=== PATIENT | female | born 1960 | race Two or more races ===

== ENCOUNTER 2020-09-02 08:32 | Emergency (ER) | payer BC ==
[~2020-09-02] VITALS: Ht 157.5 cm; Wt 88.0 kg
[~2020-09-02 08:32] MED LIST: ATOR20TA; FOLI1TAB6; HYDR200T36; HYDR25TA4; LEVOPOW43; LISI-646; METF-370; METH2.5T; METO10TA3; NOR10T
[2020-09-02 08:44] VITALS: BP 149/92
[2020-09-02 09:44] LABS: Basophils # (auto) 0 10 ^3/uL (0-0.2); Basophils % (auto) 0.7 % (0.0-2.0); Eosinophils # (auto) 0.1 10 ^3/uL (0-0.8); Eosinophils % (auto) 1.5 % (0.0-7.0); Hematocrit 40.3 % (36.0-46.0); Hemoglobin 13.9 g/dL (12.2-16.2); Lymphocytes # (auto) 1.4 10 ^3/uL (0.4-5.4); Lymphocytes % (auto) 23.7 % (10.0-50.0); Mean Corpuscular Hemoglobin 32.7 pg (28.0-32.0); Mean Corpuscular Hgb Conc. 34.6 g/dL (32.0-36.0); Mean Corpuscular Volume 94.5 fL (80.0-100.0); Monocytes # (auto) 0.8 10 ^3/uL (0-1.3); Monocytes % (auto) 13.7 % (0.0-12.0); Neutrophils # (auto) 3.5 10 ^3/uL (1.6-8.6); Neutrophils % (auto) 60.4 % (37.0-80.0); Nucleated Red Blood Cells % 0.2 %; Platelet Count (auto) 201 10^3/uL (140-450); Red Blood Cells 4.26 10^6/uL (4.0-5.20); Red Cell Distribution Width 13.5 % (11.8-14.3); White Blood Cell 5.8 10^3/uL (4.4-10.8)
[2020-09-02 10:06] LABS: Albumin 4.2 g/dL (3.4-5.0); Anion Gap 7 (5-15); Blood Urea Nitrogen 13 mg/dL (7-18); Calcium 9.1 mg/dL (8.5-10.1); Carbon Dioxide 25 mmol/L (21-32); Chloride 102 mmol/L (98-107); Glucose 131 mg/dL (74-106); Potassium 3.9 mmol/L (3.5-5.1); Sodium 134 mmol/L (136-145)
[2020-09-02 10:33] LABS: Alanine Aminotransferase 114 U/L (13-56); Alkaline Phosphatase 143 U/L (45-117); Aspartate Aminotransferase 71 U/L (15-37); BUN/Creatinine Ratio 14.6; Bilirubin, Total 0.3 mg/dL (0.2-1.0); GFR African American 84 mL/min; GFR Non-African American 69 mL/min; Total Protein 7.9 g/dL (6.4-8.2)
== END 2020-09-02 10:24 | disposition home or self-care (01) ==
LOC: ER 08:32
DX: U07.1 COVID-19 (principal)
CPT/HCPCS: 36415; 71045; 80053; 84484; 85025; 85379

== ENCOUNTER 2020-09-11 22:13 | Emergency (ER) | payer BC ==
[~2020-09-11] VITALS: Ht 157.5 cm; Wt 88.0 kg
[2020-09-12 03:00] VITALS: BP 123/79
== END 2020-09-12 03:19 | disposition home or self-care (01) ==
LOC: ER 22:13
DX: U07.1 COVID-19 (principal); R51.9 Headache, unspecified; J98.11 Atelectasis; E66.9 Obesity, unspecified; R07.9 Chest pain, unspecified; E11.9 Type 2 diabetes mellitus without complications; E78.5 Hyperlipidemia, unspecified; I10 Essential (primary) hypertension; Z68.35 Body mass index [BMI] 35.0-35.9, adult
CPT/HCPCS: 71045

== ENCOUNTER 2020-09-16 16:18 | Inpatient (IN) | payer BC ==
[~2020-09-16] VITALS: Ht 157.5 cm; Wt 81.2 kg
[~2020-09-16 16:18] MED LIST changes: -ATOR20TA; +ATOR20TA PO; -FOLI1TAB6; +FOLI1TAB6 PO; -HYDR200T36; +HYDR200T36 PO; -HYDR25TA4; +HYDR25TA4 PO; -LISI-646; +LISI-646 PO; -NOR10T; +NOR10T PO
[2020-09-16] MEDS ORDERED: ACETAMINOPHEN 500 MG TAB PO ONE (16:45)
[2020-09-16 17:30] LABS: Basophils # (auto) 0 10 ^3/uL (0-0.2); Basophils % (auto) 0.2 % (0.0-2.0); Eosinophils # (auto) 0 10 ^3/uL (0-0.8); Hematocrit 34.9 % (36.0-46.0); Hemoglobin 12.3 g/dL (12.2-16.2); Lymphocytes # (auto) 0.4 10 ^3/uL (0.4-5.4); Lymphocytes % (auto) 5.8 % (10.0-50.0); Mean Corpuscular Hemoglobin 31.9 pg (28.0-32.0); Mean Corpuscular Hgb Conc. 35.3 g/dL (32.0-36.0); Mean Corpuscular Volume 90.4 fL (80.0-100.0); Monocytes # (auto) 0.7 10 ^3/uL (0-1.3); Monocytes % (auto) 10.4 % (0.0-12.0); Neutrophils # (auto) 5.7 10 ^3/uL (1.6-8.6); Neutrophils % (auto) 83.6 % (37.0-80.0); Nucleated Red Blood Cells % 0.1 %; Platelet Count (auto) 370 10^3/uL (140-450); Red Blood Cells 3.86 10^6/uL (4.0-5.20); Red Cell Distribution Width 13.3 % (11.8-14.3); White Blood Cell 6.8 10^3/uL (4.4-10.8)
[2020-09-16 17:54] LABS: Albumin 3.1 g/dL (3.4-5.0); Anion Gap 8 (5-15); Calcium 8.6 mg/dL (8.5-10.1); Carbon Dioxide 21 mmol/L (21-32); Chloride 100 mmol/L (98-107); Potassium 4.3 mmol/L (3.5-5.1); Sodium 129 mmol/L (136-145)
[2020-09-16 18:02] LABS: Alanine Aminotransferase 81 U/L (13-56); Alkaline Phosphatase 108 U/L (45-117); Aspartate Aminotransferase 64 U/L (15-37); BUN/Creatinine Ratio 36.4; Bilirubin, Total 0.5 mg/dL (0.2-1.0); Blood Urea Nitrogen 24 mg/dL (7-18); GFR African American 118 mL/min; GFR Non-African American 98 mL/min; Glucose 121 mg/dL (74-106); Total Protein 6.9 g/dL (6.4-8.2)
[2020-09-16] MEDS ORDERED: FUROSEMIDE 20 MG/2 ML VIAL IV ONE (19:30)
[2020-09-16] MEDS ORDERED: ACETAMINOPHEN 500 MG TAB PO PRN (19:30)
[2020-09-16] MEDS ORDERED: MORPHINE SULF INJ 2 MG/ML SYRINGE 1ML IV PRN ×2 (19:30)
[2020-09-16] MEDS ORDERED: ALBUTEROL SULF HFA 90MCG INH 200DOSE IN PRN (19:30)
[2020-09-16] MEDS ORDERED: DEXTROSE (50%) 50ML SYRG IV PRN (19:30)
[2020-09-16] MEDS ORDERED: NITROGLYCERIN 0.4 MG SL TAB SL PRN (19:30)
[2020-09-16] MEDS: ZINC SULFATE 220mg CAP or TAB PO SCH (20:11)
[2020-09-16] MEDS: CHOLECALCIFEROL (VITD3) 2,000 UNIT CAP PO SCH (20:11)
[2020-09-16] MEDS: DexAMETHasone SOD PHOS 10MG/1ML VIAL INJ IV SCH (20:11)
[2020-09-16] MEDS: ASCORBIC ACID 1,000 MG TAB PO SCH (20:11)
[2020-09-16] MEDS: AZITHROMYCIN 500MG/ 250ML 250 ML IV SCH (20:12)
[2020-09-16] MEDS: ONDANSETRON HCL 4 MG/2 ML VIAL IV PRN (20:43)
[2020-09-16] MEDS: cefTRIAXone 1GM/50ML D5W 50 ML IV SCH (20:56)
[2020-09-16] MEDS: ACCU-CHEK COMFORT CURVE STRIP VI SCH (21:46)
[2020-09-16] MEDS: InsuLIN REG 1unit/0.01ml Soln (100units/ml) SC SCH (21:48)
[2020-09-16] MEDS ORDERED: BUDESONIDE (INHALATION) 0.5 MG/2 ML NEB NEB SCH (22:00)
[2020-09-16] MEDS: BUDESONIDE (INHALATION) 180 MCG IH IN SCH (22:00)
[2020-09-16] MEDS: hydrOXYchloroQUINE SULFATE 200 MG TAB PO SCH (22:09)
[2020-09-16] MEDS: ENOXAPARIN SOD 40 MG/0.4 ML SYRINGE SC SCH (22:10)
[2020-09-16 22:22] LABS: Magnesium 1.6 mg/dL (1.6-2.6)
[2020-09-16 22:37] LABS: CRP High Sensitivity 5.76 mg/dL (< 0.3)
[2020-09-17 01:39] LABS: Urine Bacteria FEW /hpf (None Seen); Urine Blood Negative /uL (Negative); Urine Specific Gravity 1.021 (1.001-1.035); Urine WBC 1 /hpf (0 - 5)
[2020-09-17] MEDS: HYDROcodone-ACET 5/325MG TAB PO PRN ×3 (04:36→17:34)
[2020-09-17 06:09] LABS: Basophils # (auto) 0 10 ^3/uL (0-0.2); Basophils % (auto) 0.1 % (0.0-2.0); Eosinophils # (auto) 0 10 ^3/uL (0-0.8); Hematocrit 31.7 % (36.0-46.0); Hemoglobin 11.5 g/dL (12.2-16.2); Lymphocytes # (auto) 0.5 10 ^3/uL (0.4-5.4); Lymphocytes % (auto) 11.3 % (10.0-50.0); Mean Corpuscular Hemoglobin 32.5 pg (28.0-32.0); Mean Corpuscular Hgb Conc. 36.4 g/dL (32.0-36.0); Mean Corpuscular Volume 89.5 fL (80.0-100.0); Monocytes # (auto) 0.5 10 ^3/uL (0-1.3); Neutrophils # (auto) 3.1 10 ^3/uL (1.6-8.6); Neutrophils % (auto) 76.6 % (37.0-80.0); Platelet Count (auto) 332 10^3/uL (140-450); Red Blood Cells 3.55 10^6/uL (4.0-5.20); Red Cell Distribution Width 13.2 % (11.8-14.3)
[2020-09-17] MEDS: ACCU-CHEK COMFORT CURVE STRIP VI SCH ×4 (06:22→21:58)
[2020-09-17] MEDS: InsuLIN REG 1unit/0.01ml Soln (100units/ml) SC SCH ×4 (06:22→22:00)
[2020-09-17 06:30] LABS: Potassium 4.3 mmol/L (3.5-5.1)
[2020-09-17 06:37] LABS: Albumin 2.8 g/dL (3.4-5.0); BUN/Creatinine Ratio 42.9; Bilirubin, Total 0.4 mg/dL (0.2-1.0); Calcium 8.3 mg/dL (8.5-10.1); Total Protein 6.4 g/dL (6.4-8.2)
[2020-09-17] MEDS: BUDESONIDE (INHALATION) 180 MCG IH IN SCH ×2 (10:00→22:00)
[2020-09-17] MEDS: ONDANSETRON HCL 4 MG/2 ML VIAL IV PRN ×2 (10:24→17:34)
[2020-09-17] MEDS: ASCORBIC ACID 1,000 MG TAB PO SCH (10:27)
[2020-09-17] MEDS: AZITHROMYCIN 500MG/ 250ML 250 ML IV SCH (10:27)
[2020-09-17] MEDS: DexAMETHasone SOD PHOS 10MG/1ML VIAL INJ IV SCH (10:27)
[2020-09-17] MEDS: cefTRIAXone 1GM/50ML D5W 50 ML IV SCH (10:27)
[2020-09-17] MEDS: hydrOXYchloroQUINE SULFATE 200 MG TAB PO SCH ×2 (10:27→21:57)
[2020-09-17] MEDS: ZINC SULFATE 220mg CAP or TAB PO SCH (10:27)
[2020-09-17] MEDS: CHOLECALCIFEROL (VITD3) 2,000 UNIT CAP PO SCH (10:27)
[2020-09-17] MEDS: FAMOTIDINE 20 MG TAB PO SCH (10:27)
[2020-09-17] MEDS: ENOXAPARIN SOD 40 MG/0.4 ML SYRINGE SC SCH ×2 (10:28→21:58)
[2020-09-17] MEDS: COLCHICINE 0.6 MG CAP PO SCH (10:49)
[2020-09-17] MEDS ORDERED: METF-879 PO (19:08)
[2020-09-17] MEDS ORDERED: LEVO150T10 PO (19:08)
[2020-09-17] MEDS ORDERED: SERT-160 PO (19:12)
[2020-09-17] MEDS ORDERED: TURM500C3 OR (19:12)
[2020-09-17] MEDS ORDERED: TEMA30CA PO (19:12)
[2020-09-17] MEDS ORDERED: [UNRECOGNIZED DRUG - CODE] IV (19:12)
[2020-09-17] MEDS ORDERED: GABA100C9 PO (19:12)
[2020-09-17] MEDS ORDERED: DOCU-80 PO (19:12)
[2020-09-17] MEDS ORDERED: OXYB5TAB61 PO (19:12)
[2020-09-17] MEDS ORDERED: ALEN35TA18 PO (19:12)
[2020-09-17] MEDS ORDERED: ASPI-498 PO (19:12)
[2020-09-17] MEDS ORDERED: METH500T22 PO (19:12)
[2020-09-17] MEDS ORDERED: ERGO1CAP12 PO (19:13)
[2020-09-17] MEDS ORDERED: BENZ200C64 PO (19:14)
[2020-09-17] MEDS ORDERED: ZINC220C8 PO (19:14)
[2020-09-17] MEDS ORDERED: ALBUAER3 IN (19:14)
[2020-09-17] MEDS ORDERED: ACET-1304 PO (19:15)
[2020-09-17] MEDS ORDERED: DOXY100C2 PO (19:15)
[2020-09-17] MEDS ORDERED: LEVO500T21 PO (19:26)
[2020-09-17] MEDS ORDERED: IPR002IS NEB (19:26)
[2020-09-17] MEDS ORDERED: ALBU0.5N2 NEB (19:26)
[2020-09-17] MEDS ORDERED: METH4PAK PO (19:26)
[2020-09-18] VITALS (8 sets, daily range): BP systolic 103–127; BP diastolic 65–80
[2020-09-18] MEDS: guaiFENesin-CODEINE Liq 5 ML UD PO PRN ×2 (00:35→11:44)
[2020-09-18] MEDS: HYDROcodone-ACET 5/325MG TAB PO PRN ×2 (01:05→11:44)
[2020-09-18] MEDS: ACCU-CHEK COMFORT CURVE STRIP VI SCH ×3 (06:23→17:16)
[2020-09-18] MEDS: InsuLIN REG 1unit/0.01ml Soln (100units/ml) SC SCH ×3 (06:23→17:18)
[2020-09-18] MEDS: BUDESONIDE (INHALATION) 180 MCG IH IN SCH (07:11)
[2020-09-18] MEDS: cefTRIAXone 1GM/50ML D5W 50 ML IV SCH (09:14)
[2020-09-18] MEDS: AZITHROMYCIN 500MG/ 250ML 250 ML IV SCH (09:15)
[2020-09-18] MEDS: ENOXAPARIN SOD 40 MG/0.4 ML SYRINGE SC SCH (09:15)
[2020-09-18] MEDS: DexAMETHasone SOD PHOS 10MG/1ML VIAL INJ IV SCH (09:15)
[2020-09-18] MEDS: ASCORBIC ACID 1,000 MG TAB PO SCH (09:16)
[2020-09-18] MEDS: ZINC SULFATE 220mg CAP or TAB PO SCH (09:16)
[2020-09-18] MEDS: COLCHICINE 0.6 MG CAP PO SCH (09:16)
[2020-09-18] MEDS: CHOLECALCIFEROL (VITD3) 2,000 UNIT CAP PO SCH (09:16)
[2020-09-18] MEDS: FAMOTIDINE 20 MG TAB PO SCH (10:00)
[2020-09-18] MEDS: ONDANSETRON HCL 4 MG/2 ML VIAL IV PRN ×2 (11:44)
[2020-09-18] MEDS: hydrOXYchloroQUINE SULFATE 200 MG TAB PO SCH (14:18)
== END 2020-09-18 19:00 | disposition home health service (06) | DRG 177 ==
LOC: ER 16:18 → TELE 16:19 → TELE-EAST 09-17 23:34
PROVIDERS: ADMIT Nurse Practitioner Acute Care; ATTEND Internal Medicine
PROC: XW13325 Transfusion of Convalescent Plasma (Nonautologous) into Peripheral Vein, Percutaneous Approach, New Technology Group 5 (ICD-10-PCS; principal; 2020-09-18)
DX: U07.1 COVID-19 (principal); J12.82 Pneumonia due to coronavirus disease 2019; J96.01 Acute respiratory failure with hypoxia; E87.1 Hypo-osmolality and hyponatremia; D68.59 Other primary thrombophilia; D89.839 Cytokine release syndrome, grade unspecified; E11.9 Type 2 diabetes mellitus without complications; E78.5 Hyperlipidemia, unspecified; I10 Essential (primary) hypertension; E03.9 Hypothyroidism, unspecified; F32.9 Major depressive disorder, single episode, unspecified; M06.9 Rheumatoid arthritis, unspecified; E66.01 Morbid (severe) obesity due to excess calories; Z79.899 Other long term (current) drug therapy; Z88.8 Allergy status to other drugs, medicaments and biological substances; Z79.84 Long term (current) use of oral hypoglycemic drugs; Z68.32 Body mass index [BMI] 32.0-32.9, adult
CPT/HCPCS: 36415; 71045; 80053; 81001; 82728; 82962; 83036; 83605; 83615; 83735; 83880; 84443; 84484; 85025; 85379; 86141; 86850; 86900; 86901; 87040; 87081; 87426; 87804; 93970; 96374; G0378; J0696; J1100; J1815; J2405

== ENCOUNTER 2020-09-21 10:06 | Inpatient (IN) | payer BC ==
[~2020-09-21] VITALS: Ht 157.5 cm; Wt 81.2 kg
[~2020-09-21 10:06] MED LIST changes: +ACET-1304 PO; +ALBU0.5N2 NEB; +ALBUAER3 IN; +ALEN35TA18 PO; +ASPI-498 PO; +BENZ200C64 PO; +DOCU-80 PO; +DOXY100C2 PO; +ERGO1CAP12 PO; +GABA100C9 PO; -HYDR25TA4 PO; +IPR002IS NEB; +LEVO150T10 PO; +LEVO500T31 PO; -LEVOPOW43; -METF-370; +METF-879 PO; -METH2.5T; +METH4PAK PO; +METH500T22 PO; -METO10TA3; +OXYB5TAB61 PO; +SERT-160 PO; +TEMA30CA PO; +[UNRECOGNIZED DRUG - CODE] IV
[2020-09-21] MEDS ORDERED: IOHEXOL 350 MG/ML 100ML IJ ONE (10:34)
[2020-09-21] MEDS ORDERED: LORazepam 2MG/ML-1ML VIAL IV ONE (10:45)
[2020-09-21 11:17] LABS: Basophils # (auto) 0 10 ^3/uL (0-0.2); Basophils % (auto) 0.1 % (0.0-2.0); Eosinophils # (auto) 0 10 ^3/uL (0-0.8); Hematocrit 35.1 % (36.0-46.0); Lymphocytes # (auto) 0.5 10 ^3/uL (0.4-5.4); Lymphocytes % (auto) 4.5 % (10.0-50.0); Mean Corpuscular Hemoglobin 31.3 pg (28.0-32.0); Mean Corpuscular Hgb Conc. 34.1 g/dL (32.0-36.0); Mean Corpuscular Volume 91.6 fL (80.0-100.0); Monocytes # (auto) 0.9 10 ^3/uL (0-1.3); Monocytes % (auto) 7.6 % (0.0-12.0); Neutrophils # (auto) 10.2 10 ^3/uL (1.6-8.6); Neutrophils % (auto) 87.8 % (37.0-80.0); Platelet Count (auto) 417 10^3/uL (140-450); Red Blood Cells 3.83 10^6/uL (4.0-5.20); Red Cell Distribution Width 13.2 % (11.8-14.3); White Blood Cell 11.6 10^3/uL (4.4-10.8)
[2020-09-21 11:27] LABS: Albumin 2.7 g/dL (3.4-5.0); Anion Gap 6 (5-15); Blood Urea Nitrogen 20 mg/dL (7-18); Calcium 9.2 mg/dL (8.5-10.1); Carbon Dioxide 27 mmol/L (21-32); Chloride 94 mmol/L (98-107); Glucose 109 mg/dL (74-106); Magnesium 1.8 mg/dL (1.6-2.6); Potassium 4.7 mmol/L (3.5-5.1); Sodium 127 mmol/L (136-145)
[2020-09-21] MEDS ORDERED: NITROGLYCERIN 0.4 MG SL TAB SL PRN (11:30)
[2020-09-21] MEDS ORDERED: MORPHINE SULF INJ 2 MG/ML SYRINGE 1ML IV PRN ×2 (11:30→12:30)
[2020-09-21 11:33] LABS: Alanine Aminotransferase 153 U/L (13-56); Alkaline Phosphatase 140 U/L (45-117); Aspartate Aminotransferase 92 U/L (15-37); BUN/Creatinine Ratio 29.4; Bilirubin, Total 0.6 mg/dL (0.2-1.0); GFR African American 114 mL/min; GFR Non-African American 94 mL/min; Total Protein 7.3 g/dL (6.4-8.2)
[2020-09-21] MEDS ORDERED: VANCOMYCIN PER PHARMACY 0 MG IV SCH (12:30)
[2020-09-21] MEDS ORDERED: REMDESIVIR PER PHARMACY 0 ML IV SCH (12:30)
[2020-09-21] MEDS ORDERED: ACETAMINOPHEN 500 MG TAB PO PRN (12:30)
[2020-09-21] MEDS ORDERED: VANCOMYCIN 1GM/250ML 250 ML IV ONE (12:30)
[2020-09-21] MEDS ORDERED: levoFLOXacin 500MG 100 ML IV ONE (12:30)
[2020-09-21] MEDS ORDERED: LACTULOSE 20Gm/30ML SOLN PO PRN (12:30)
[2020-09-21] MEDS ORDERED: DEXTROSE (50%) 50ML SYRG IV PRN (12:30)
[2020-09-21] MEDS ORDERED: traMADol HCL 50 MG TAB PO PRN (12:30)
[2020-09-21] MEDS ORDERED: ASCORBIC ACID 1,000 MG TAB PO ONE (12:45)
[2020-09-21] MEDS ORDERED: CHOLECALCIFEROL (VITD3) 2,000 UNIT CAP PO ONE (12:45)
[2020-09-21] MEDS ORDERED: DexAMETHasone SOD PHOS 10MG/1ML VIAL INJ IV ONE (12:45)
[2020-09-21] MEDS ORDERED: ENOXAPARIN SOD 40 MG/0.4 ML SYRINGE SC ONE (12:45)
[2020-09-21] MEDS ORDERED: FAMOTIDINE 20 MG TAB PO ONE (12:45)
[2020-09-21] MEDS ORDERED: ZINC SULFATE 220mg CAP or TAB PO ONE (12:45)
[2020-09-21] MEDS: PROMETHAZINE HCL 25 MG/ML 1ML IV PRN (14:15)
[2020-09-21] MEDS: HYDROcodone-ACET 5/325MG TAB PO PRN (14:35)
[2020-09-21] MEDS ORDERED: REMDESIVIR 200 MG in NS 210ml LOADING DOSE ADULT IV ONE (15:00)
[2020-09-21] MEDS: ACCU-CHEK COMFORT CURVE STRIP VI SCH ×2 (18:13→22:30)
[2020-09-21] MEDS: InsuLIN REG 1unit/0.01ml Soln (100units/ml) SC SCH ×2 (18:15→23:00)
[2020-09-21] MEDS: BUDESONIDE (INHALATION) 180 MCG IH IN SCH (18:55)
[2020-09-21] MEDS: ALBUTEROL SULF HFA 90MCG INH 200DOSE IN PRN (19:01)
[2020-09-21] MEDS: FAMOTIDINE 20 MG TAB PO SCH (23:00)
[2020-09-21] MEDS: ENOXAPARIN SOD 40 MG/0.4 ML SYRINGE SC SCH (23:00)
[2020-09-22] MEDS: ACCU-CHEK COMFORT CURVE STRIP VI SCH ×4 (07:00→22:18)
[2020-09-22 07:50] LABS: Basophils # (auto) 0 10 ^3/uL (0-0.2); Basophils % (auto) 0.4 % (0.0-2.0); Eosinophils # (auto) 0 10 ^3/uL (0-0.8); Hematocrit 35.5 % (36.0-46.0); Hemoglobin 12.1 g/dL (12.2-16.2); Lymphocytes % (auto) 10.5 % (10.0-50.0); Mean Corpuscular Hemoglobin 31.4 pg (28.0-32.0); Mean Corpuscular Volume 92.1 fL (80.0-100.0); Monocytes # (auto) 0.9 10 ^3/uL (0-1.3); Monocytes % (auto) 9.2 % (0.0-12.0); Neutrophils # (auto) 7.9 10 ^3/uL (1.6-8.6); Neutrophils % (auto) 79.9 % (37.0-80.0); Platelet Count (auto) 389 10^3/uL (140-450); Red Blood Cells 3.86 10^6/uL (4.0-5.20); Red Cell Distribution Width 13.5 % (11.8-14.3); White Blood Cell 9.8 10^3/uL (4.4-10.8)
[2020-09-22 08:10] LABS: Potassium 4.2 mmol/L (3.5-5.1)
[2020-09-22] MEDS: ALBUTEROL SULF HFA 90MCG INH 200DOSE IN PRN (08:13)
[2020-09-22] MEDS: BUDESONIDE (INHALATION) 180 MCG IH IN SCH ×2 (08:13→22:00)
[2020-09-22 08:17] LABS: Albumin 2.5 g/dL (3.4-5.0); BUN/Creatinine Ratio 32.3; Bilirubin, Total 0.5 mg/dL (0.2-1.0); Calcium 8.8 mg/dL (8.5-10.1); Total Protein 6.9 g/dL (6.4-8.2)
[2020-09-22] MEDS ORDERED: IVERMECTIN 3 MG TAB PO ONE (10:00)
[2020-09-22] MEDS: DexAMETHasone SOD PHOS 10MG/1ML VIAL INJ IV SCH (10:07)
[2020-09-22] MEDS: CHOLECALCIFEROL (VITD3) 2,000 UNIT CAP PO SCH (10:07)
[2020-09-22] MEDS: ZINC SULFATE 220mg CAP or TAB PO SCH (10:07)
[2020-09-22] MEDS: ENOXAPARIN SOD 40 MG/0.4 ML SYRINGE SC SCH ×2 (10:07→21:53)
[2020-09-22] MEDS: ASCORBIC ACID 1,000 MG TAB PO SCH (10:07)
[2020-09-22] MEDS: FAMOTIDINE 20 MG TAB PO SCH ×2 (10:07→21:53)
[2020-09-22] MEDS: InsuLIN REG 1unit/0.01ml Soln (100units/ml) SC SCH ×4 (10:26→21:56)
[2020-09-22] MEDS: levoFLOXacin 500MG 100 ML IV SCH (10:31)
[2020-09-22 10:51] LABS: Albumin 2.6 g/dL (3.4-5.0); Bilirubin, Direct 0.2 mg/dL (0-0.2)
[2020-09-22 10:53] LABS: Bilirubin, Total 0.5 mg/dL (0.2-1.0)
[2020-09-22] MEDS ORDERED: REMDESIVIR 100mg 100 MG in SODIUM CHL 0.9% 230 ML IV SCH ×2 (15:00→17:00)
[2020-09-22] MEDS: HYDROcodone-ACET 5/325MG TAB PO PRN (18:27)
[2020-09-22] MEDS: TEMAZEPAM 15 MG CAP PO PRN (21:53)
[2020-09-23] VITALS: BP 134/79
[2020-09-23] MEDS: HYDROcodone-ACET 5/325MG TAB PO PRN ×2 (05:36→14:02)
[2020-09-23] MEDS: InsuLIN REG 1unit/0.01ml Soln (100units/ml) SC SCH ×4 (06:15→21:55)
[2020-09-23] MEDS: ACCU-CHEK COMFORT CURVE STRIP VI SCH ×4 (06:15→21:55)
[2020-09-23 07:02] LABS: INR 1.08 (0.9-1.15)
[2020-09-23 07:07] LABS: Albumin 2.2 g/dL (3.4-5.0); Calcium 8.4 mg/dL (8.5-10.1); Potassium 4.3 mmol/L (3.5-5.1)
[2020-09-23 07:11] LABS: BUN/Creatinine Ratio 33.3; Bilirubin, Total 0.5 mg/dL (0.2-1.0); Total Protein 6.2 g/dL (6.4-8.2)
[2020-09-23 08:00] VITALS: BP 130/81
[2020-09-23 09:27] LABS: Urine Bacteria NONE SEEN /hpf (None Seen); Urine Blood Negative /uL (Negative); Urine Mucus FEW (None Seen); Urine Specific Gravity 1.027 (1.001-1.035); Urine WBC 15 /hpf (0 - 5)
[2020-09-23] MEDS: DexAMETHasone SOD PHOS 10MG/1ML VIAL INJ IV SCH (10:38)
[2020-09-23] MEDS: ZINC SULFATE 220mg CAP or TAB PO SCH (10:38)
[2020-09-23] MEDS: FAMOTIDINE 20 MG TAB PO SCH ×2 (10:38→21:54)
[2020-09-23] MEDS: levoFLOXacin 500MG 100 ML IV SCH (10:38)
[2020-09-23] MEDS: ASCORBIC ACID 1,000 MG TAB PO SCH (10:39)
[2020-09-23] MEDS: ENOXAPARIN SOD 40 MG/0.4 ML SYRINGE SC SCH ×2 (10:39→21:55)
[2020-09-23] MEDS: CHOLECALCIFEROL (VITD3) 2,000 UNIT CAP PO SCH (10:39)
[2020-09-23] MEDS: ALPRAZolam 0.25 MG TAB PO PRN ×2 (12:54→21:56)
[2020-09-23] MEDS: BUDESONIDE (INHALATION) 180 MCG IH IN SCH ×2 (12:55→20:58)
[2020-09-23 15:45] VITALS: BP 125/78
[2020-09-23] MEDS: PROMETHAZINE HCL 25 MG/ML 1ML IV PRN (16:45)
[2020-09-23] MEDS: ALBUTEROL SULF HFA 90MCG INH 200DOSE IN PRN (20:58)
[2020-09-23 23:39] VITALS: BP 128/72
[2020-09-24] MEDS: HYDROcodone-ACET 5/325MG TAB PO PRN ×3 (00:07→17:53)
[2020-09-24] MEDS: ALPRAZolam 0.25 MG TAB PO PRN ×3 (05:57→20:38)
[2020-09-24] MEDS: InsuLIN REG 1unit/0.01ml Soln (100units/ml) SC SCH ×4 (06:58→21:44)
[2020-09-24] MEDS: ACCU-CHEK COMFORT CURVE STRIP VI SCH ×4 (06:58→21:44)
[2020-09-24 07:04] LABS: Potassium 4.2 mmol/L (3.5-5.1)
[2020-09-24 07:10] LABS: Albumin 2.4 g/dL (3.4-5.0); BUN/Creatinine Ratio 31.4; Calcium 8.6 mg/dL (8.5-10.1)
[2020-09-24 07:13] LABS: Bilirubin, Total 0.3 mg/dL (0.2-1.0); Total Protein 6.2 g/dL (6.4-8.2)
[2020-09-24 08:00] VITALS: BP 141/73
[2020-09-24] MEDS: FAMOTIDINE 20 MG TAB PO SCH ×2 (09:45→21:44)
[2020-09-24] MEDS: DexAMETHasone SOD PHOS 10MG/1ML VIAL INJ IV SCH (09:45)
[2020-09-24] MEDS: ZINC SULFATE 220mg CAP or TAB PO SCH (09:45)
[2020-09-24] MEDS: ASCORBIC ACID 1,000 MG TAB PO SCH (09:45)
[2020-09-24] MEDS: levoFLOXacin 500MG 100 ML IV SCH (09:45)
[2020-09-24] MEDS: ENOXAPARIN SOD 40 MG/0.4 ML SYRINGE SC SCH ×2 (09:46→21:44)
[2020-09-24] MEDS: CHOLECALCIFEROL (VITD3) 2,000 UNIT CAP PO SCH (09:46)
[2020-09-24] MEDS: BUDESONIDE (INHALATION) 180 MCG IH IN SCH ×2 (12:41→21:30)
[2020-09-24 16:00] VITALS: BP 127/72
[2020-09-24] MEDS: ALBUTEROL SULF HFA 90MCG INH 200DOSE IN PRN (21:30)
[2020-09-24] MEDS: TEMAZEPAM 15 MG CAP PO PRN (23:40)
[2020-09-25] VITALS: BP 129/93
[2020-09-25] MEDS: HYDROcodone-ACET 5/325MG TAB PO PRN ×3 (02:38→14:57)
[2020-09-25] MEDS: ACCU-CHEK COMFORT CURVE STRIP VI SCH ×4 (06:05→21:02)
[2020-09-25] MEDS: InsuLIN REG 1unit/0.01ml Soln (100units/ml) SC SCH ×4 (06:06→21:01)
[2020-09-25] MEDS: ALPRAZolam 0.25 MG TAB PO PRN ×3 (06:09→21:02)
[2020-09-25 06:24] LABS: Basophils # (auto) 0 10 ^3/uL (0-0.2); Basophils % (auto) 0.1 % (0.0-2.0); Eosinophils # (auto) 0 10 ^3/uL (0-0.8); Eosinophils % (auto) 0.4 % (0.0-7.0); Hematocrit 31.6 % (36.0-46.0); Hemoglobin 10.9 g/dL (12.2-16.2); Lymphocytes # (auto) 1.2 10 ^3/uL (0.4-5.4); Lymphocytes % (auto) 16.5 % (10.0-50.0); Mean Corpuscular Hemoglobin 31.9 pg (28.0-32.0); Mean Corpuscular Hgb Conc. 34.6 g/dL (32.0-36.0); Mean Corpuscular Volume 92.1 fL (80.0-100.0); Monocytes # (auto) 0.7 10 ^3/uL (0-1.3); Monocytes % (auto) 10.5 % (0.0-12.0); Neutrophils # (auto) 5.2 10 ^3/uL (1.6-8.6); Neutrophils % (auto) 72.5 % (37.0-80.0); Platelet Count (auto) 394 10^3/uL (140-450); Red Blood Cells 3.43 10^6/uL (4.0-5.20); Red Cell Distribution Width 12.9 % (11.8-14.3); White Blood Cell 7.2 10^3/uL (4.4-10.8)
[2020-09-25 06:39] LABS: Potassium 4.3 mmol/L (3.5-5.1)
[2020-09-25 06:50] LABS: Albumin 2.5 g/dL (3.4-5.0); BUN/Creatinine Ratio 27.3; Bilirubin, Total 0.3 mg/dL (0.2-1.0); Calcium 8.8 mg/dL (8.5-10.1); Magnesium 1.9 mg/dL (1.6-2.6); Total Protein 5.9 g/dL (6.4-8.2)
[2020-09-25] MEDS: ALBUTEROL SULF HFA 90MCG INH 200DOSE IN PRN ×2 (06:55→19:50)
[2020-09-25] MEDS: BUDESONIDE (INHALATION) 180 MCG IH IN SCH ×2 (06:55→19:50)
[2020-09-25 08:00] VITALS: BP 136/85
[2020-09-25] MEDS: levoFLOXacin 500MG 100 ML IV SCH (09:22)
[2020-09-25] MEDS: DexAMETHasone SOD PHOS 10MG/1ML VIAL INJ IV SCH (09:22)
[2020-09-25] MEDS: FAMOTIDINE 20 MG TAB PO SCH ×2 (09:23→21:01)
[2020-09-25] MEDS: CHOLECALCIFEROL (VITD3) 2,000 UNIT CAP PO SCH (09:23)
[2020-09-25] MEDS: ZINC SULFATE 220mg CAP or TAB PO SCH (09:23)
[2020-09-25] MEDS: ASCORBIC ACID 1,000 MG TAB PO SCH (09:23)
[2020-09-25] MEDS: ENOXAPARIN SOD 40 MG/0.4 ML SYRINGE SC SCH ×2 (09:26→21:01)
[2020-09-25 15:53] VITALS: BP 132/84
[2020-09-25 22:29] VITALS: BP 137/98
[2020-09-25] MEDS: TEMAZEPAM 15 MG CAP PO PRN (23:24)
[2020-09-25 23:53] VITALS: BP 137/98
[2020-09-26] MEDS ORDERED: PROMETHAZINE W/CODEINE 5 ML ORAL SYRUP PO PRN
[2020-09-26] MEDS: HYDROcodone-ACET 5/325MG TAB PO PRN ×2 (03:14→11:32)
[2020-09-26] MEDS: InsuLIN REG 1unit/0.01ml Soln (100units/ml) SC SCH ×2 (06:24→11:30)
[2020-09-26] MEDS: ACCU-CHEK COMFORT CURVE STRIP VI SCH ×2 (06:24→11:30)
[2020-09-26] MEDS ORDERED: LEVOTHYROXINE SODIUM 50 MCG TAB PO SCH (07:00)
[2020-09-26] MEDS: ALBUTEROL SULF HFA 90MCG INH 200DOSE IN PRN (07:50)
[2020-09-26] MEDS: BUDESONIDE (INHALATION) 180 MCG IH IN SCH (07:50)
[2020-09-26 08:00] VITALS: BP 135/98
[2020-09-26] MEDS: levoFLOXacin 500MG 100 ML IV SCH (09:04)
[2020-09-26] MEDS: ZINC SULFATE 220mg CAP or TAB PO SCH (09:04)
[2020-09-26] MEDS: DexAMETHasone SOD PHOS 10MG/1ML VIAL INJ IV SCH (09:04)
[2020-09-26] MEDS: ASCORBIC ACID 1,000 MG TAB PO SCH (09:05)
[2020-09-26] MEDS: ALPRAZolam 0.25 MG TAB PO PRN (09:05)
[2020-09-26] MEDS: ENOXAPARIN SOD 40 MG/0.4 ML SYRINGE SC SCH (09:05)
[2020-09-26] MEDS: FAMOTIDINE 20 MG TAB PO SCH (09:05)
[2020-09-26] MEDS: CHOLECALCIFEROL (VITD3) 2,000 UNIT CAP PO SCH (09:05)
[2020-09-26 10:57] LABS: Albumin 2.5 g/dL (3.4-5.0); Calcium 8.7 mg/dL (8.5-10.1); Potassium 4.1 mmol/L (3.5-5.1)
[2020-09-26 11:00] LABS: Bilirubin, Total 0.4 mg/dL (0.2-1.0); Total Protein 6.5 g/dL (6.4-8.2)
[2020-09-26 15:22] VITALS: BP 135/98
[2020-09-26 16:00] VITALS: BP 137/89
== END 2020-09-26 16:50 | disposition home or self-care (01) | DRG 177 ==
LOC: ER 10:06 → TELE 10:07 → TELE-EAST 09-22 17:08
PROVIDERS: ADMIT Internal Medicine; ATTEND Internal Medicine
PROC: XW033E5 Introduction of Remdesivir Anti-infective into Peripheral Vein, Percutaneous Approach, New Technology Group 5 (ICD-10-PCS; principal; 2020-09-21)
DX: U07.1 COVID-19 (principal); J12.82 Pneumonia due to coronavirus disease 2019; J96.01 Acute respiratory failure with hypoxia; J98.11 Atelectasis; E87.1 Hypo-osmolality and hyponatremia; F41.9 Anxiety disorder, unspecified; E88.09 Other disorders of plasma-protein metabolism, not elsewhere classified; E03.9 Hypothyroidism, unspecified; E11.9 Type 2 diabetes mellitus without complications; E78.5 Hyperlipidemia, unspecified; F32.9 Major depressive disorder, single episode, unspecified; E66.9 Obesity, unspecified; I10 Essential (primary) hypertension; R74.01 Elevation of levels of liver transaminase levels; M19.90 Unspecified osteoarthritis, unspecified site; M06.9 Rheumatoid arthritis, unspecified; M81.0 Age-related osteoporosis without current pathological fracture; Z79.899 Other long term (current) drug therapy; Z83.3 Family history of diabetes mellitus; Z59.0 Homelessness; Z68.32 Body mass index [BMI] 32.0-32.9, adult
CPT/HCPCS: 36415; 71045; 71275; 76705; 80053; 80076; 81001; 82728; 82962; 83605; 83735; 84484; 85025; 85379; 85610; 86141; 87040; 87081; 87426; 93005; 94640; 96361; 96365; 96368; 96375; 99291; G0378; J1100; J1815; J1956

== ENCOUNTER 2021-10-08 21:07 | Inpatient (IN) | payer BC ==
[~2021-10-08] VITALS: Ht 157.5 cm; Wt 78.6 kg
[~2021-10-08 21:07] MED LIST changes: -LISI-646 PO; +LISI20TA28 PO; +[UNRECOGNIZED DRUG - CODE] IV; -[UNRECOGNIZED DRUG - CODE] IV
[2021-10-08 23:32] LABS: Basophils # (auto) 0.1 10 ^3/uL (0-0.2); Basophils % (auto) 0.9 % (0.0-2.0); Eosinophils # (auto) 0 10 ^3/uL (0-0.8); Hematocrit 35.8 % (36.0-46.0); Lymphocytes # (auto) 0.5 10 ^3/uL (0.4-5.4); Lymphocytes % (auto) 6.9 % (10.0-50.0); Mean Corpuscular Hemoglobin 30.1 pg (28.0-32.0); Mean Corpuscular Hgb Conc. 33.4 g/dL (32.0-36.0); Monocytes # (auto) 0.3 10 ^3/uL (0-1.3); Monocytes % (auto) 4.5 % (0.0-12.0); Neutrophils # (auto) 6.5 10 ^3/uL (1.6-8.6); Neutrophils % (auto) 87.7 % (37.0-80.0); Red Blood Cells 3.97 10^6/uL (4.0-5.20); Red Cell Distribution Width 15.2 % (11.8-14.3); White Blood Cell 7.4 10^3/uL (4.4-10.8)
[2021-10-08 23:45] LABS: Albumin 3.2 g/dL (3.4-5.0); Calcium 8.4 mg/dL (8.5-10.1); Magnesium 2.1 mg/dL (1.6-2.6); Potassium 4.3 mmol/L (3.5-5.1)
[2021-10-08 23:50] LABS: BUN/Creatinine Ratio 21.1; Bilirubin, Total 0.5 mg/dL (0.2-1.0)
[2021-10-09] MEDS ORDERED: ACETAMINOPHEN 500 MG TAB PO STA ×2 (01:29→01:40)
[2021-10-09] MEDS ORDERED: guaiFENesin-CODEINE Liq 5 ML UD PO ONE (01:30)
[2021-10-09] MEDS ORDERED: HYDROmorphone HCL 2 MG/ML VL IV ONE (03:00)
[2021-10-09] MEDS ORDERED: DEXTROSE (50%) 50ML SYRG IV PRN (05:30)
[2021-10-09] MEDS ORDERED: NITROGLYCERIN 0.4 MG SL TAB SL PRN (05:30)
[2021-10-09] MEDS: ALBUTEROL SULF HFA 90MCG INH 200DOSE IN SCH ×3 (06:00→22:00)
[2021-10-09] MEDS ORDERED: NOREPINEPHRINE 8 MG/250ML KIT 250 ML IV ONE (06:03)
[2021-10-09 06:06] LABS: Basophils # (auto) 0 10 ^3/uL (0-0.2); Basophils % (auto) 0.3 % (0.0-2.0); Eosinophils # (auto) 0 10 ^3/uL (0-0.8); Hematocrit 28.3 % (36.0-46.0); Hemoglobin 9.6 g/dL (12.2-16.2); Lymphocytes # (auto) 0.6 10 ^3/uL (0.4-5.4); Mean Corpuscular Hemoglobin 30.6 pg (28.0-32.0); Monocytes # (auto) 0.3 10 ^3/uL (0-1.3); Monocytes % (auto) 6.2 % (0.0-12.0); Neutrophils # (auto) 4.4 10 ^3/uL (1.6-8.6); Neutrophils % (auto) 82.5 % (37.0-80.0); Nucleated Red Blood Cells % 0.1 %; Red Blood Cells 3.14 10^6/uL (4.0-5.20); White Blood Cell 5.4 10^3/uL (4.4-10.8)
[2021-10-09] MEDS ORDERED: NOREPINEPHRINE 8 MG/250ML KIT 250 ML IV STA (06:16)
[2021-10-09] MEDS ORDERED: VANCOMYCIN PER PHARMACY 0 MG IV SCH (06:30)
[2021-10-09] MEDS ORDERED: VANCOMYCIN 1GM/250ML 250 ML IV ONE (06:30)
[2021-10-09] MEDS: ACCU-CHEK COMFORT CURVE STRIP VI SCH ×4 (07:00→22:04)
[2021-10-09] MEDS: InsuLIN REG 1unit/0.01ml Soln (100units/ml) SC SCH ×4 (07:00→22:07)
[2021-10-09 07:40] LABS: Albumin 2.5 g/dL (3.4-5.0); Calcium 7.2 mg/dL (8.5-10.1); Potassium 3.8 mmol/L (3.5-5.1)
[2021-10-09 07:44] LABS: BUN/Creatinine Ratio 21.1; Bilirubin, Total 0.4 mg/dL (0.2-1.0); Total Protein 5.4 g/dL (6.4-8.2)
[2021-10-09] MEDS: PIPERACILLIN-TAZOB 3.375GM 100 ML IV SCH ×3 (07:53→21:43)
[2021-10-09] MEDS ORDERED: PIPERACILLIN-TAZOB 3.375GM 100 ML IV SCH ×2 (10:00→12:00)
[2021-10-09] MEDS: ASCORBIC ACID 500 MG TAB PO SCH ×2 (10:47→22:04)
[2021-10-09] MEDS: CHOLECALCIFEROL (VITD3) 2,000 UNIT CAP/TAB PO SCH (10:47)
[2021-10-09] MEDS: DexAMETHasone SOD PHOS 10MG/1ML VIAL INJ IV SCH (10:47)
[2021-10-09] MEDS: ZINC SULFATE 220mg CAP or TAB PO SCH (10:47)
[2021-10-09] MEDS: ENOXAPARIN SOD 40 MG/0.4 ML SYRINGE SC SCH (10:47)
[2021-10-09] MEDS: guaiFENesin-DM 100/10mg/5ml SYR PO PRN ×2 (11:39→22:54)
[2021-10-09] MEDS: ACETAMINOPHEN 325 MG TAB PO PRN ×2 (11:40→22:53)
[2021-10-09] MEDS ORDERED: REMDESIVIR PER PHARMACY 0 ML IV SCH (16:00)
[2021-10-09] MEDS ORDERED: REMDESIVIR 200 MG in NS 210ml LOADING DOSE ADULT IV ONE (18:00)
[2021-10-09] MEDS: VANCOMYCIN 1GM/250ML 250 ML IV SCH (22:05)
[2021-10-10] MEDS: PIPERACILLIN-TAZOB 3.375GM 100 ML IV SCH ×4 (01:36→19:45)
[2021-10-10] MEDS: InsuLIN REG 1unit/0.01ml Soln (100units/ml) SC SCH ×4 (06:43→22:00)
[2021-10-10] MEDS: ACCU-CHEK COMFORT CURVE STRIP VI SCH ×4 (06:44→21:56)
[2021-10-10 07:13] LABS: Basophils # (auto) 0 10 ^3/uL (0-0.2); Basophils % (auto) 0.2 % (0.0-2.0); Eosinophils # (auto) 0 10 ^3/uL (0-0.8); Hematocrit 31.2 % (36.0-46.0); Hemoglobin 10.5 g/dL (12.2-16.2); Lymphocytes # (auto) 0.5 10 ^3/uL (0.4-5.4); Lymphocytes % (auto) 6.9 % (10.0-50.0); Mean Corpuscular Hemoglobin 30.2 pg (28.0-32.0); Mean Corpuscular Hgb Conc. 33.6 g/dL (32.0-36.0); Mean Corpuscular Volume 89.9 fL (80.0-100.0); Monocytes # (auto) 0.4 10 ^3/uL (0-1.3); Monocytes % (auto) 5.1 % (0.0-12.0); Neutrophils % (auto) 87.8 % (37.0-80.0); Red Blood Cells 3.47 10^6/uL (4.0-5.20); Red Cell Distribution Width 14.9 % (11.8-14.3); White Blood Cell 7.9 10^3/uL (4.4-10.8)
[2021-10-10 07:14] LABS: Albumin 2.8 g/dL (3.4-5.0); Calcium 8.2 mg/dL (8.5-10.1); Potassium 4.3 mmol/L (3.5-5.1)
[2021-10-10 07:17] LABS: BUN/Creatinine Ratio 25.9; Bilirubin, Total 0.3 mg/dL (0.2-1.0); Total Protein 6.6 g/dL (6.4-8.2)
[2021-10-10] MEDS: HYDROcodone-ACET 10/325MG TAB PO PRN ×2 (08:21→20:24)
[2021-10-10] MEDS: ACETAMINOPHEN 325 MG TAB PO PRN (08:22)
[2021-10-10] MEDS: ALBUTEROL SULF HFA 90MCG INH 200DOSE IN PRN (08:31)
[2021-10-10] MEDS: VANCOMYCIN 1GM/250ML 250 ML IV SCH (09:08)
[2021-10-10] MEDS: CHOLECALCIFEROL (VITD3) 2,000 UNIT CAP/TAB PO SCH (10:41)
[2021-10-10] MEDS: ZINC SULFATE 220mg CAP or TAB PO SCH (10:41)
[2021-10-10] MEDS: ASCORBIC ACID 500 MG TAB PO SCH ×2 (10:41→22:01)
[2021-10-10] MEDS: DexAMETHasone SOD PHOS 10MG/1ML VIAL INJ IV SCH (10:41)
[2021-10-10] MEDS: ENOXAPARIN SOD 40 MG/0.4 ML SYRINGE SC SCH (10:42)
[2021-10-10] MEDS: REMDESIVIR 100mg 100 MG in SODIUM CHL 0.9% 230 ML IV SCH (15:55)
[2021-10-10 18:52] VITALS: BP 106/69
[2021-10-10] MEDS ORDERED: AZIT250T9 PO (19:12)
[2021-10-10] MEDS ORDERED: HYDR25TA4 PO (19:14)
[2021-10-10] MEDS ORDERED: BECL80AE11 IN (19:14)
[2021-10-10] MEDS ORDERED: LORA0.5T20 PO (19:14)
[2021-10-10 22:00] VITALS: BP 110/69
[2021-10-11] MEDS: PIPERACILLIN-TAZOB 3.375GM 100 ML IV SCH ×4 (01:25→19:15)
[2021-10-11] MEDS: guaiFENesin-DM 100/10mg/5ml SYR PO PRN ×2 (02:14→23:50)
[2021-10-11] MEDS: HYDROcodone-ACET 10/325MG TAB PO PRN ×3 (04:23→23:50)
[2021-10-11 05:00] VITALS: BP 115/75
[2021-10-11] MEDS: ACCU-CHEK COMFORT CURVE STRIP VI SCH ×4 (06:25→21:41)
[2021-10-11] MEDS: InsuLIN REG 1unit/0.01ml Soln (100units/ml) SC SCH ×4 (06:25→21:49)
[2021-10-11 08:09] LABS: Potassium 4.2 mmol/L (3.5-5.1)
[2021-10-11 08:24] LABS: Albumin 2.5 g/dL (3.4-5.0); BUN/Creatinine Ratio 34.9; Bilirubin, Total 0.3 mg/dL (0.2-1.0); Calcium 8.2 mg/dL (8.5-10.1); Total Protein 5.8 g/dL (6.4-8.2)
[2021-10-11 09:00] VITALS: BP 111/79
[2021-10-11] MEDS: ASCORBIC ACID 500 MG TAB PO SCH ×2 (09:15→21:55)
[2021-10-11] MEDS: DexAMETHasone SOD PHOS 10MG/1ML VIAL INJ IV SCH (09:15)
[2021-10-11] MEDS: CHOLECALCIFEROL (VITD3) 2,000 UNIT CAP/TAB PO SCH (09:15)
[2021-10-11] MEDS: ENOXAPARIN SOD 40 MG/0.4 ML SYRINGE SC SCH (09:15)
[2021-10-11] MEDS: ZINC SULFATE 220mg CAP or TAB PO SCH (09:15)
[2021-10-11] MEDS: ONDANSETRON HCL 4 MG/2 ML VIAL IV PRN ×2 (09:30→23:49)
[2021-10-11 13:00] VITALS: BP 132/72
[2021-10-11] MEDS ORDERED: TEMAZEPAM 15 MG CAP PO PRN (13:45)
[2021-10-11] MEDS: REMDESIVIR 100mg 100 MG in SODIUM CHL 0.9% 230 ML IV SCH (15:26)
[2021-10-11 17:00] VITALS: BP 110/75
[2021-10-11] MEDS: ALBUTEROL SULF HFA 90MCG INH 200DOSE IN PRN (21:31)
[2021-10-11 21:51] VITALS: BP 114/75
[2021-10-12] MEDS: PIPERACILLIN-TAZOB 3.375GM 100 ML IV SCH ×3 (01:10→14:12)
[2021-10-12 05:00] VITALS: BP 111/70
[2021-10-12] MEDS: ALBUTEROL SULF HFA 90MCG INH 200DOSE IN PRN (05:44)
[2021-10-12 05:48] LABS: Albumin 2.5 g/dL (3.4-5.0); Calcium 8.5 mg/dL (8.5-10.1); Potassium 4.3 mmol/L (3.5-5.1)
[2021-10-12 05:51] LABS: BUN/Creatinine Ratio 26.2; Bilirubin, Total 0.2 mg/dL (0.2-1.0); Total Protein 5.8 g/dL (6.4-8.2)
[2021-10-12] MEDS: InsuLIN REG 1unit/0.01ml Soln (100units/ml) SC SCH ×3 (06:15→17:30)
[2021-10-12] MEDS: ACCU-CHEK COMFORT CURVE STRIP VI SCH ×4 (06:15→17:30)
[2021-10-12] MEDS: DexAMETHasone SOD PHOS 10MG/1ML VIAL INJ IV SCH (08:06)
[2021-10-12] MEDS: ENOXAPARIN SOD 40 MG/0.4 ML SYRINGE SC SCH (08:06)
[2021-10-12] MEDS: CHOLECALCIFEROL (VITD3) 2,000 UNIT CAP/TAB PO SCH (08:07)
[2021-10-12] MEDS: ASCORBIC ACID 500 MG TAB PO SCH (08:07)
[2021-10-12] MEDS: ZINC SULFATE 220mg CAP or TAB PO SCH (08:07)
[2021-10-12] MEDS: HYDROcodone-ACET 10/325MG TAB PO PRN (08:07)
[2021-10-12] MEDS: ONDANSETRON HCL 4 MG/2 ML VIAL IV PRN (08:08)
[2021-10-12 08:30] VITALS: BP 162/97
[2021-10-12 12:30] VITALS: BP 127/80
[2021-10-12] MEDS: REMDESIVIR 100mg 100 MG in SODIUM CHL 0.9% 230 ML IV SCH (14:12)
[2021-10-12 16:37] VITALS: BP 120/72
[2021-10-12 17:00] VITALS: BP 116/69
== END 2021-10-12 18:00 | disposition home or self-care (01) | DRG 177 ==
LOC: ER 21:08 → TELE 10-09 05:29 → TELE-EAST 10-10 18:30
PROVIDERS: ADMIT Hospitalist; ATTEND Internal Medicine
PROC: XW033E5 Introduction of Remdesivir Anti-infective into Peripheral Vein, Percutaneous Approach, New Technology Group 5 (ICD-10-PCS; principal; 2021-10-09)
DX: U07.1 COVID-19 (principal); J12.82 Pneumonia due to coronavirus disease 2019; J96.01 Acute respiratory failure with hypoxia; J98.11 Atelectasis; E03.9 Hypothyroidism, unspecified; E11.9 Type 2 diabetes mellitus without complications; E78.5 Hyperlipidemia, unspecified; I10 Essential (primary) hypertension; E66.9 Obesity, unspecified; F32.A Depression, unspecified; M19.90 Unspecified osteoarthritis, unspecified site; M06.9 Rheumatoid arthritis, unspecified; Z68.31 Body mass index [BMI] 31.0-31.9, adult; Z79.899 Other long term (current) drug therapy; Z87.442 Personal history of urinary calculi; Z23 Encounter for immunization
CPT/HCPCS: 36415; 71045; 80053; 82728; 82962; 83735; 84484; 85025; 85379; 87040; 87426; 93005; 94640; 96365; 96367; 96375; G0378; J1100; J1815; J2405; J2543

== ENCOUNTER 2022-01-20 18:09 | Emergency (ER) | payer BC ==
[~2022-01-20] VITALS: Ht 157.5 cm; Wt 69.9 kg
[~2022-01-20 18:09] MED LIST changes: +AZIT250T9 PO; +BECL80AE11 IN; +HYDR25TA4 PO; -LEVO500T31 PO; +LORA0.5T20 PO
[2022-01-20 19:25] LABS: Basophils # (auto) 0.1 10 ^3/uL (0-0.2); Eosinophils # (auto) 0.1 10 ^3/uL (0-0.8); Eosinophils % (auto) 0.7 % (0.0-7.0); Hematocrit 29.5 % (36.0-46.0); Lymphocytes # (auto) 1.2 10 ^3/uL (0.4-5.4); Lymphocytes % (auto) 14.3 % (10.0-50.0); Mean Corpuscular Hemoglobin 28.1 pg (28.0-32.0); Mean Corpuscular Hgb Conc. 33.8 g/dL (32.0-36.0); Monocytes # (auto) 0.9 10 ^3/uL (0-1.3); Monocytes % (auto) 10.7 % (0.0-12.0); Neutrophils % (auto) 73.3 % (37.0-80.0); Nucleated Red Blood Cells % 0.1 %; Red Blood Cells 3.55 10^6/uL (4.0-5.20); Red Cell Distribution Width 17.3 % (11.8-14.3); White Blood Cell 8.2 10^3/uL (4.4-10.8)
[2022-01-20 19:52] LABS: Albumin 3.2 g/dL (3.4-5.0); Calcium 9.4 mg/dL (8.5-10.1); Magnesium 1.8 mg/dL (1.6-2.6); Potassium 4.5 mmol/L (3.5-5.1)
[2022-01-20 19:55] LABS: BUN/Creatinine Ratio 31.9; Bilirubin, Total 0.3 mg/dL (0.2-1.0); Total Protein 7.3 g/dL (6.4-8.2)
[2022-01-21 00:25] VITALS: BP 96/64
== END 2022-01-21 00:25 | disposition home or self-care (01) ==
LOC: ER 18:09
DX: R07.89 Other chest pain (principal); E11.9 Type 2 diabetes mellitus without complications; E78.5 Hyperlipidemia, unspecified; M19.90 Unspecified osteoarthritis, unspecified site
CPT/HCPCS: 36415; 71045; 80053; 83735; 84443; 84484; 85025; 93005

== ENCOUNTER 2022-12-10 22:25 | Emergency (ER) | payer BC ==
[~2022-12-10] VITALS: Ht 157.5 cm; Wt 76.0 kg
[2022-12-11 01:31] LABS: Albumin 3.5 g/dL (3.4-5.0); BUN/Creatinine Ratio 36.8 (10.0-20.0); Calcium 9.8 mg/dL (8.5-10.1); Potassium 3.9 mmol/L (3.5-5.1)
[2022-12-11 01:40] LABS: Bilirubin, Total 0.3 mg/dL (0.2-1.0); Total Protein 7.9 g/dL (6.4-8.2)
[2022-12-11 01:45] LABS: Basophils # (auto) 0 10 ^3/uL (0-0.2); Basophils % (auto) 0.3 % (0.0-2.0); Eosinophils # (auto) 0 10 ^3/uL (0-0.8); Hematocrit 34.4 % (36.0-46.0); Lymphocytes # (auto) 1.4 10 ^3/uL (0.4-5.4); Lymphocytes % (auto) 11.8 % (10.0-50.0); Mean Corpuscular Hemoglobin 30.9 pg (28.0-32.0); Mean Corpuscular Volume 88.3 fL (80.0-100.0); Monocytes # (auto) 1.5 10 ^3/uL (0-1.3); Neutrophils # (auto) 9.2 10 ^3/uL (1.6-8.6); Neutrophils % (auto) 75.9 % (37.0-80.0); Nucleated Red Blood Cells % 0.1 %; Red Cell Distribution Width 15.3 % (11.8-14.3); White Blood Cell 12.2 10^3/uL (4.4-10.8)
[2022-12-11 03:41] VITALS: BP 124/62
== END 2022-12-11 03:27 | disposition home or self-care (01) ==
LOC: ER 22:25
DX: U07.1 COVID-19 (principal); J12.82 Pneumonia due to coronavirus disease 2019; M19.90 Unspecified osteoarthritis, unspecified site; F32.9 Major depressive disorder, single episode, unspecified; E11.9 Type 2 diabetes mellitus without complications; E78.5 Hyperlipidemia, unspecified; I10 Essential (primary) hypertension; Z98.890 Other specified postprocedural states
CPT/HCPCS: 36415; 71045; 80053; 85025; 87426; 87804